=== PATIENT | male | born 1935 | race Caucasian/White ===

== ENCOUNTER 2017-05-02 09:04 | Day surgery (SDC) | payer MEDICARE, OTHER ==
[2017-05-02] VITALS (9 sets, daily range): BP systolic 104–122; BP diastolic 50–86; PULSE 56–76; TEMP 98.7
[~2017-05-02] VITALS: Ht 172.8 cm; Wt 68.2 kg
[2017-05-02 09:40] LABS: HEMATOCRIT 42.9 % (42.0-52.0); HEMOGLOBIN 14.2 g/dl (13.5-18.0); MEAN CELL VOLUME 103 fl (80.0-100.0); MEAN CORPUSCULAR HEMOGLOBIN 34 pg (27.0-31.0); MEAN CORPUSCULAR HGB CONC 33 g/dl (33.0-37.0); MEAN PLATELET VOLUME 10.1 fl (7.4-10.4); PLATELET COUNT 173 K/mm3 (130-400); RED BLOOD COUNT 4.17 M/mm3 (4.20-5.60); WHITE BLOOD COUNT 9.5 K/mm3 (4.8-10.8)
[2017-05-02 09:47] LABS: CALCIUM 9.8 mg/dL (8.4-10.2); CREATININE, serum 0.9 mg/dL (0.66-1.25)
[2017-05-02 09:48] LABS: PROTHROMBIN TIME 11.3 SECONDS (9.7-12.8)
[2017-05-02] MEDS ORDERED: MICARDIS HCT 251 TAB PO ×2 (09:54→13:26)
[2017-05-02] MEDS ORDERED: ZYLOPRIM 100MG100 MG PO (09:55)
[2017-05-02] MEDS ORDERED: MULTI VITAMINS1 TAB PO (09:56)
[2017-05-02] MEDS ORDERED: KLONOPIN 1MG1 MG PO (09:56)
[2017-05-02] MEDS ORDERED: VYTORIN 10 MG-81 TAB PO (09:56)
[2017-05-02] MEDS ORDERED: OMEGA-3 1000 MG1 CAP PO (09:57)
[2017-05-02] MEDS ORDERED: ASPIRIN E.C. 8181 MG PO (09:58)
[2017-05-02] MEDS ORDERED: IMDUR 30MG30 MG/TAB PO (13:27)
[2017-05-02] MEDS ORDERED: PLAVIX 75MG TAB75 MG PO (13:28)
[2017-05-02] MEDS ORDERED: COREG 3.123.125 MG/T PO (13:28)
[2017-05-02] MEDS ORDERED: NITROSTAT0.4 MG/TAB SL (13:29)
== END 2017-05-02 14:45 ==
LOC: EUO 09:04 → COL.CAR 09:30 → EUO 14:45
PROVIDERS: Internal Medicine Cardiovascular Disease
DX: I25.110 Atherosclerotic heart disease of native coronary artery with unstable angina pectoris (principal); R94.39 Abnormal result of other cardiovascular function study; I34.0 Nonrheumatic mitral (valve) insufficiency; I10 Essential (primary) hypertension; E78.00 Pure hypercholesterolemia, unspecified; Z87.891 Personal history of nicotine dependence
CPT/HCPCS: C1769; J1644; J2250; J3010; Q9967